=== PATIENT | male | born 1990 | race Caucasian/White ===

== ENCOUNTER → 2019-07-08 | Day surgery (SDC) | payer BC ==
[~2019-07-08] MED LIST: Bupivacaine 0.5% 50 ML MDV ONE; Cephalexin 250 MG Cap PO ONE; Dexamethasone 4 MG/ML SDV ONE; Dextrose 5%-Lactated Ringers 1,000 ML IV SCH; Diphtheria,Pertussis(Acell),Tetanus Vaccine 0.5 ML SDV IM ONE; Glycopyrrolate 0.2 MG/ML 5 ML MDV ONE; Ketorolac 60 MG/2 ML SDV ONE; Lidocaine 1% with EPINEPHrine 1:100,000 50 ML MDV ONE; Neostigmine Methylsulfate 1 MG/ML 5 ML Syringe ONE; Ondansetron 4 MG/2 ML SDV ONE; Propofol 200 MG/20 ML SDV ONE; Rocuronium 50 MG/5 ML Vial ONE; Sodium Chloride 0.9% 50 ML ONE; Succinylcholine 200 MG/10 ML MDV ONE; ceFAZolin 1 GM Vial ONE; ceFAZolin 1 GM in Premix Bag 1 BAG IV ONE; fentaNYL 250 MCG/5 ML SDV ONE
--- NOTE | 2019-07-08 22:07 | EDM.PDOC ---
ED HPI GENERAL MEDICAL PROBLEM - General Stated Complaint: HURT RT KNEE Time Seen by Provider: 07/08/19 21:57 Source of Information: Reports: Patient History Limitations: Reports: No Limitations - History of Present Illness INITIAL COMMENTS - FREE TEXT/NARRATIVE: 28-year-old male, otherwise healthy stumbled 2 hours ago striking his knee on the metal edge of a stair. He has a small laceration on the anterior aspect of the left knee, and a very large very deep laceration across the distal knee under the patella on the right leg. He has been ingesting alcohol but according to the patient he has not had any anything to eat or drink in 3-1/2 hours. Onset: Sudden Duration: Hour(s): (2 hours ago) Location: Reports: Lower Extremity, Left, Lower Extremity, Right Associated Symptoms: Reports: No Other Symptoms - Related Data Allergies Allergy/AdvReac Type Severity Reaction Status Date / Time No Known Allergies Allergy Verified 07/08/19 22:51 Home Meds: Home Meds NK [No Known Home Meds] 07/08/19 [History] Review of Systems - Review of Systems Review Of Systems: See Below Constitutional: Denies: Fever Respiratory: Denies: Shortness of Breath Cardiovascular: Reports: Chest Pain (Some superficial chest discomfort from striking his chest on the stairs as well) Musculoskeletal: Reports: Other (Patient has a large transverse and very deep laceration to the right anterior leg just distal to the knee, 15 cm across down to the fascia of the knee) Neurological: Denies: Paresthesia ED EXAM, GENERAL - Physical Exam Exam: See Below Exam Limited By: Intoxication General Appearance: Alert, No Apparent Distress Eye Exam: Bilateral Eye: EOMI Head: Atraumatic Respiratory/Chest: No Respiratory Distress, Lungs Clear Cardiovascular: Regular Rate, Rhythm Extremities: Other (Patient is a 15 cm transverse laceration through the entire subcutaneous tissue to the fascia of the patellar ligament on the right leg. He also has a small laceration on the anterior left leg. A few superficial bruises on the chest.) Course - Vital Signs Last Recorded V/S: Last Vital Signs Temp 98.1 F 07/08/19 23:55 Pulse 94 07/08/19 23:55 Resp 16 07/08/19 23:55 BP 150/84 H 07/08/19 23:55 Pulse Ox 94 L 07/08/19 23:55 - Orders/Labs/Meds Orders: Active Orders 24 hr Category Date Time Status Vaccines to be Administered [RC] PER UNIT ROUTINE Care 07/08/19 21:59 Active Dextrose 5%-Lactated Ringers 1,000 ml Med 07/08/19 22:00 Active IV ASDIRECTED Medication Orders Dextrose/Lactated Ringer's (Dextrose 5%-Lactated Ringers) 1,000 mls @ 150 mls/ hr IV ASDIRECTED FERNANDO Last Admin: 07/08/19 22:29 Dose: 150 mls/hr Labs: Laboratory Tests 07/08/19 07/08/19 07/08/19 Range/Units 22:11 22:11 22:11 WBC 9.1 (4.5-11.0) K/uL RBC 6.07 H (4.30-5.90) M/uL Hgb 17.7 H (12.0-15.0) g/dL Hct 50.8 (40.0-54.0) % MCV 84 (80-98) fL MCH 29 (27-31) pg MCHC 35 (32-36) % Plt Count 285 (150-400) K/uL Neut % (Auto) 55 (36-66) % Lymph % (Auto) 35 (24-44) % Rogers % (Auto) 7 H (2-6) % Eos % (Auto) 2 (2-4) % Baso % (Auto) 1 (0-1) % Sodium 140 (140-148) mmol/L Potassium 3.3 L (3.6-5.2) mmol/L Chloride 102 (100-108) mmol/L Carbon Dioxide 24 (21-32) mmol/L Anion Gap 17.3 H (5.0-14.0) mmol/L BUN 11 (7-18) mg/dL Creatinine 1.2 (0.8-1.3) mg/dL Est Cr Clr Drug Dosing 90.83 mL/min Estimated GFR (MDRD) > 60 (>60) Glucose 120 H (74-106) mg/dL Calcium 8.6 (8.5-10.1) mg/dL Total Bilirubin 0.3 (0.2-1.0) mg/dL AST 55 H (15-37) U/L ALT 87 H (12-78) U/L Alkaline Phosphatase 73 (46-116) U/L Total Protein 8.0 (6.4-8.2) g/dL Albumin 4.3 (3.4-5.0) g/dL Globulin 3.7 H (2.3-3.5) g/dL Albumin/Globulin Ratio 1.2 (1.2-2.2) Ethyl Alcohol 140 mg/dL Meds: Medications Generic Name Dose Route Start Last Admin Trade Name Freq PRN Reason Stop Dose Admin Dextrose/Lactated Ringer's 1,000 mls @ 150 mls/hr 07/08/19 22:00 07/08/19 22: 29 Dextrose 5%-Lactated Ringers IV 150 mls/hr ASDIRECTED FERNANDO Administration Discontinued Medications Generic Name Dose Route Start Last Admin Trade Name Freq PRN Reason Stop Dose Admin Bupivacaine HCl Confirm 07/08/19 22:25 Marcaine 0.5% Administered 07/08/19 22:26 Dose 50 ml .ROUTE .STK-MED ONE Cefazolin Sodium Confirm 07/08/19 22:22 07/08/19 22:28 Ancef Administered 07/08/19 22:23 1 gm Dose Administration 1 gm .ROUTE .STK-MED ONE Cefazolin Sodium Confirm 07/08/19 22:44 07/08/19 23:08 Ancef Administered 07/08/19 22:45 1 gm Dose Administration 1 gm .ROUTE .STK-MED ONE Cephalexin 500 mg 07/09/19 00:13 07/09/19 00:30 Keflex PO 07/09/19 00:14 500 mg ONETIME ONE Administration Cephalexin 500 mg 07/09/19 00:13 07/09/19 00:31 Keflex PO 07/09/19 00:14 500 mg ONETIME ONE Administration Dexamethasone Confirm 07/08/19 22:32 Dexamethasone Administered 07/08/19 22:33 Dose 4 mg .ROUTE .STK-MED ONE Diphtheria/Tetanus/Acell Pertussis 0.5 ml 07/08/19 21:59 07/08/19 22:32 Adacel IM 07/08/19 22:00 0.5 ml .ONCE ONE Administration Fentanyl Confirm 07/08/19 22:33 Sublimaze Administered 07/08/19 22:34 Dose 250 mcg .ROUTE .STK-MED ONE Glycopyrrolate Confirm 07/08/19 22:32 Robinul Administered 07/08/19 22:33 Dose 1 mg .ROUTE .STK-MED ONE Cefazolin Sodium/Dextrose 1 gm 50 mls @ 100 mls/hr 07/08/19 22:11 07/08/19 22 :34 / Premix IV 07/08/19 22:40 100 mls/hr ONETIME ONE Administration Sodium Chloride Confirm 07/08/19 22:23 07/08/19 22:28 Normal Saline Administered 07/08/19 22:24 50 mls/hr Dose Administration 50 mls @ as directed .ROUTE .STK-MED ONE Ketorolac Tromethamine Confirm 07/08/19 23:07 Toradol Administered 07/08/19 23:08 Dose 60 mg .ROUTE .STK-MED ONE Lidocaine/Epinephrine Confirm 07/08/19 22:25 Xylocaine 1% With Epinephrine 1:100,000 Administered 07/08/19 22:26 Dose 50 ml .ROUTE .STK-MED ONE Neostigmine Methylsulfate Confirm 07/08/19 22:32 Neostigmine Administered 07/08/19 22:33 Dose 5 mg .ROUTE .STK-MED ONE Ondansetron HCl Confirm 07/08/19 22:32 Zofran Administered 07/08/19 22:33 Dose 4 mg .ROUTE .STK-MED ONE Propofol Confirm 07/08/19 22:32 Diprivan 20 Ml Administered 07/08/19 22:33 Dose 200 mg .ROUTE .STK-MED ONE Rocuronium Geismar Confirm 07/08/19 22:32 Zemuron Administered 07/08/19 22:33 Dose 50 mg .ROUTE .STK-MED ONE Succinylcholine Chloride Confirm 07/08/19 22:32 Quelicin Administered 07/08/19 22:33 Dose 200 mg .ROUTE .STK-MED ONE - Re-Assessments/Exams Free Text/Narrative Re-Assessment/Exam: 07/08/19 22:10 This patient is going to need extensive washing of the wound and fairly complex layered surgical repair. Dr. Bradshaw was consulted and kindly agreed to see the patient and assess for surgical repair. 07/08/19 22:41 EtOH was 0.140, other labs reassuring. Departure - Departure Time of Disposition: 01:05 Disposition: Home, Self-Care 01 Clinical Impression: Laceration - Discharge Information Sepsis Event Note - Focused Exam Vital Signs: Vital Signs Temp Temp Pulse Resp BP BP Pulse Ox 07/08/19 23:55 98.1 F 94 16 150/84 H 94 L 07/08/19 23:50 93 15 147/87 H 94 L 07/08/19 23:45 90 20 136/89 95 07/08/19 23:40 95 12 153/96 H 96 07/08/19 23:35 99 15 141/99 H 94 L 07/08/19 23:30 96 14 144/95 H 98 07/08/19 23:25 97.5 F 87 12 156/95 H 100 07/08/19 22:59 96.6 F L 100 16 148/93 H 95 07/08/19 21:51 96.6 F L 100 16 148/93 H 95 Date Exam was Performed: 07/09/19 Time Exam was Performed: 02:23 - My Orders Last 24 Hours: My Active Orders 07/08/19 21:59 Vaccines to be Administered [RC] PER UNIT ROUTINE 07/08/19 22:00 Dextrose 5%-Lactated Ringers 1,000 ml IV ASDIRECTED - Assessment/Plan Last 24 Hours: My Active Orders 07/08/19 21:59 Vaccines to be Administered [RC] PER UNIT ROUTINE 07/08/19 22:00 Dextrose 5%-Lactated Ringers 1,000 ml IV ASDIRECTED
--- NOTE | 2019-07-19 16:21 | OR ---
DATE OF PROCEDURE: 07/08/2019 SURGEON: Chris Bradshaw MD PREOPERATIVE DIAGNOSES: 1. Complex laceration of anterior aspect of right knee with superficial infrapatellar tendon laceration. 2. Deep laceration adjacent to left knee. OPERATIVE PROCEDURES: 1. Exploration and irrigation of laceration of anterior right knee area with: a. Repair of superficial laceration of the infrapatellar tendon (91574). b. Repair of complex laceration ([id number] [id number] x2), laceration length 18.5 cm. 2. Repair of laceration of left knee area with layered closure ([id number]). ANESTHESIA: General. INDICATION FOR PROCEDURE: This is a 28-year-old male who ran into some sheet metal in his garage area, resulting in a quite complex laceration at and below the right knee area and a smaller laceration on the lateral aspect of the left knee. The patient received IV antibiotics and tetanus immunization in the emergency room, and given the extensiveness of laceration, he is to undergo a repair of this with a general anesthetic in the operating room. Potential risks including bleeding and infection were reviewed, and the patient wishes to proceed. DETAILS OF PROCEDURE: The patient was taken to the operating room and placed in a supine position. After general endotracheal anesthesia was induced, both legs were prepped and draped. Initially, the right knee area was inspected and the laceration began on the area over the origin of the infrapatellar tendon, and there was a small partial laceration of that on its lateral aspect, but not enough that we would need to have the patient restricted from weightbearing or other motion. The patient did have a flap between the fascia and the deep subcutaneous tissue plane that extended up superiorly over and above the patella. The wound otherwise was fairly clean. It was irrigated with an Ancef-containing saline solution. The patellar tendon was then reinforced with a [id number] 2-0 Vicryl stitch. A Philip- Yepez drain was then placed on the anterior aspect of the thigh above the plane of the flap and then draped across the flap, as this would almost for sure fill up with some fluid. The incision was then closed with 2 layers of 3-0 and 4-0 Vicryl stitch deep and then regino for the skin. Drain was fixed with a 3-0 Vicryl stitch as well. Attention was taken to the left knee area. This laceration measured 4 cm and was also irrigated with Ancef-containing saline solution. The deeper layer, a 3-0 Vicryl stitch was placed, and the skin then closed with regino. Dressings were applied. The patient was taken to the recovery room in satisfactory condition. Chris Bradshaw MD /[id number] [email or web address]
== END ==
LOC: JP.ED 21:32 → JP.SDS 22:15
PROVIDERS: ATTEND Surgery
DX: S81.011A Laceration without foreign body, right knee, initial encounter (principal); S81.012A Laceration without foreign body, left knee, initial encounter; Z23 Encounter for immunization; W22.8XXA Striking against or struck by other objects, initial encounter; Y92.015 Private garage of single-family (private) house as the place of occurrence of the external cause
CPT/HCPCS: 12032; 13121; 13122; 27380; 36415; 80053; 80307; 85025; 90471; 90715; 99283; J0330; J0690; J1100; J1885; J2405; J2704; J2710; J3010; J3490; J7121; J7050